=== PATIENT | male | born 1965 | race Caucasian/White ===

== ENCOUNTER 2021-12-14 10:53 | Outpatient (RCR) | payer OTHER, SELFPAY | END 2022-01-04 23:59 | LOC: NS 10:53 | PROVIDERS: PCP Family Medicine; Visit Provider Family Medicine | DX: Z71.3 Dietary counseling and surveillance (principal); E66.9 Obesity, unspecified; Z68.34 Body mass index [BMI] 34.0-34.9, adult | CPT/HCPCS: 97802 ==

== ENCOUNTER 2022-01-25 11:06 | Outpatient (RCR) | payer OTHER, SELFPAY | END 2022-02-04 23:59 | LOC: NS 11:06 | PROVIDERS: PCP Family Medicine; Visit Provider Family Medicine | DX: Z71.3 Dietary counseling and surveillance (principal); E66.9 Obesity, unspecified; Z68.34 Body mass index [BMI] 34.0-34.9, adult | CPT/HCPCS: 97803 ==

== ENCOUNTER 2022-03-26 09:55 | Outpatient (RCR) | payer OTHER, SELFPAY | END 2022-03-26 23:59 | disposition home or self-care (01) | LOC: NS 09:55 | PROVIDERS: PCP Family Medicine; Referring Provider Family Medicine; Visit Provider Family Medicine | DX: Z71.3 Dietary counseling and surveillance (principal); E66.9 Obesity, unspecified; Z68.34 Body mass index [BMI] 34.0-34.9, adult | CPT/HCPCS: 97803 ==

== ENCOUNTER 2022-03-30 08:32 | Day surgery (SDC) | payer OTHER, SELFPAY ==
[2022-03-30] VITALS (7 sets, daily range): BP systolic 94–129; BP diastolic 66–90; PULSE 71–83; RESP 16; TEMP 36.5–36.7; O2SAT 94–96; BMI 34.7
[2022-03-30] MEDS: Lactated Ringers 1,000 ML 15 ML IV (09:13)
--- NOTE | 2022-03-30 10:10 | HP.PCM_ITS ---
HPI - General HPI Narrative ORLANDO CRANE, is a 56 M who presents for screening colonoscopy. Patient has last colonoscopy approximately 8 years ago and he was recommended to repeat by his PCP. Patient denies any abdominal pain or blood in the stool. He has no family history of colon cancer. FORMERLY [facility], 1928–1983 Medical History (Updated 03/27/22 @ 15:05 by Reina Robins) CPAP (continuous positive airway pressure) dependence Hypercholesteremia Non-smoker BRENNA (obstructive sleep apnea) Sleep apnea Wears glasses Home Medications ascorbic acid 125 mg-collagen, hydrolyzed 740 mg capsule (Collagen Plus Vitamin C) 1 cap PO DAILY 03/27/22 [History Last Taken Unknown] cod liver oil 1 cap PO DAILY 03/27/22 [History Last Taken Unknown] multivitamin with minerals-folic acid 200 mcg chewable tablet (Multivitamin Gummies) 1 tab PO DAILY 03/27/22 [History Last Taken Unknown] vitamin B complex 1 tab PO DAILY 03/27/22 [History Last Taken Unknown] Allergy/AdvReac Type Severity Reaction Status Date / Time No Known Allergies Allergy Verified 03/30/22 09:08 Family History (Updated 11/21/21 @ 11:11 by Amanda Mg) Mother Breast cancer Brother Brain cancer Father Heart disease Surgical History (Updated 03/27/22 @ 15:05 by Reina Robins) History of surgery on right wrist Hx of colonoscopy Hx of surgical procedure Social History (Updated 11/21/21 @ 11:13 by Amanda Mg) household members: spouse current occupational status: employed current occupation: Business Services Assistant Smoking Status: Never smoker Past Medical/Surgical History Planned Operation Planned Operative Procedure/s: COLONOSCOPY Previous Hospitalizations/Surgeries HX Hospitalizations: No Any Problems With Anesthesia: No You/Your Family Experience Fever (Hyperthermia) With Anes: No Cholinesterase deficiency: No Cardiovascular Hx Hypertension: No Respiratory Hx Sleep Apnea: Yes CPAP: Yes BIPAP: No Hx Respiratory Tract Infection/Cold (presently): No Result (for STOP score): Positive Smoking Status: Never smoker Neurological Does patient have nerve stimulator: No Miscellaneous Recent Exposure to Contagious Disease: No Allergies No Known Allergies Allergy (Verified 03/30/22 09:08) Discharge Is Pt Admitted From a [facility], or a [facility]: No After D/C, Where Do you Plan to Go: Return Home Vital Signs Vital Signs Vital Signs: 03/30/22 09:11 03/30/22 09:11 Temperature 98.1 F Temperature Source Temporal Pulse Rate 83 Respiratory Rate 16 Respiratory Pattern Normal Blood Pressure 129/90 H Blood Pressure Mean 103 Blood Pressure Source Monitor Blood Pressure Position Semi-Fowlers Blood Pressure Location Left Arm Pulse Ox 96 Oxygen Delivery Method Room Air Weight Weight: 255 lb 11.779 oz Body Mass Index (BMI) 34.7 Physical Exam Const alert and oriented x3 Resp normal respiratory effort and normal air movement Cardio regular rate and regular rhythm GI soft to palpation, non-tender and non-distended Assessment & Plan Assessment/Plan (1) Encounter for screening for malignant neoplasm of colon: PLAN: I explained endoscopy in detail to the patient. I explained the risks including but not limited to stroke or heart attack with anesthesia, perforation of the GI tract, bleeding, infection. I explained that any of these could necessitate further emergency surgery. The patient understands and all questions were answered sufficiently. The patient wishes to proceed with procedure. Scooby Murguia MD Pager: [facility] [address] [place] [address] [place] [address] Office: Surgery Risks - Colonoscopy Risks Include but are not Limited To: Risks include but are not limited to: Bleeding, perforation requiring further surgery, inability to complete colonoscopy requiring barium enema.
--- NOTE | 2022-03-30 10:39 | OP.COLON_ITS ---
Patient Name: Adriano Ibanez Procedure Date: 03/30/2022 10:14 AM Date of : 1965 Age: 56 Procedure: Colonoscopy Indications: Screening for colorectal malignant neoplasm Providers: Scooby Murguia MD Referring MD: Scooby Murguia MD Medicines: Monitored Anesthesia Care Patient Profile: This is a 56 year old male. Refer to note in patient chart for documentation of history and physical. Last Colonoscopy: several years ago. Complications: No immediate complications. Procedure: Pre-Anesthesia Assessment: - Prior to the procedure, a History and Physical was performed, and patient medications and allergies were reviewed. The patient's tolerance of previous anesthesia was also reviewed. The risks and benefits of the procedure and the sedation options and risks were discussed with the patient. All questions were answered, and informed consent was obtained. Prior Anticoagulants: The patient has taken no previous anticoagulant or antiplatelet agents. After reviewing the risks and benefits, the patient was deemed in satisfactory condition to undergo the procedure. After I obtained informed consent, the scope was passed under direct vision. Throughout the procedure, the patient's blood pressure, pulse, and oxygen saturations were monitored continuously. The pediatric colonoscope was introduced through the anus and advanced to the cecum, identified by appendiceal orifice and ileocecal valve. The colonoscopy was performed without difficulty. The patient tolerated the procedure well. The quality of the bowel preparation was good. Scope In: 10:25:57 AM Scope Out: 10:37:53 AM Total Procedure Duration Time 0 hours 11 minutes 56 seconds Findings: The entire examined colon appeared normal on direct and retroflexion views. Impression: - The entire examined colon is normal on direct and retroflexion views. - No specimens collected. Recommendation: - Discharge patient to home. - Resume previous diet. - Continue present medications. - Repeat colonoscopy in 10 years for screening purposes. Procedure Code(s): --- Professional --- 45840, Colonoscopy, flexible; diagnostic, including collection of specimen(s) by brushing or washing, when performed (separate procedure) Diagnosis Code(s): --- Professional --- Z12.11, Encounter for screening for malignant neoplasm of colon CPT copyright 2017 [employer]. All rights reserved. The codes documented in this report are preliminary and upon supervisor mails review may be revised to meet current compliance requirements. Scooby Murguia MD 03/30/2022 10:38:55 AM This report has been signed electronically. Number of Addenda: 0 Note Initiated On: 03/30/2022 10:14 AM
--- NOTE | 2022-03-30 10:40 | OP.CCLET_ITS ---
03/30/2022 Lon Parsons [address] [place] [address] Re : Colonoscopy procedure for Adriano Yipero Dear Dr. Parsons This procedure was performed on Wednesday, March 30, 2022. My impressions and recommendations are as follows: Impressions : - The entire examined colon is normal on direct and retroflexion views. - No specimens collected. Recommendations : - Discharge patient to home. - Resume previous diet. - Continue present medications. - Repeat colonoscopy in 10 years for screening purposes. My findings are described in the full procedure note, which is enclosed. If I can be of further assistance, please feel free to contact me at Doctor phone number(s): , Work: . Sincerely, Scooby Murguia MD 03/30/2022 10:38:55 AM This report has been signed electronically.
== END 2022-03-30 11:59 | disposition home or self-care (01) ==
LOC: EN 08:34 → AC 08:36
PROVIDERS: PCP Family Medicine; Referring Provider Surgery; Visit Provider Surgery
PROC: 0DJD8ZZ Inspection of Lower Intestinal Tract, Via Natural or Artificial Opening Endoscopic (ICD-10-PCS; CPT 45378; principal; 2022-03-30 10:10)
DX: Z12.11 Encounter for screening for malignant neoplasm of colon (principal); E78.00 Pure hypercholesterolemia, unspecified; G47.33 Obstructive sleep apnea (adult) (pediatric); Z79.899 Other long term (current) drug therapy
CPT/HCPCS: 45378; J7120; J2405